=== PATIENT | female | born 1960 | race African-American/Black ===

== ENCOUNTER 2018-05-30 11:40 | Emergency (ER) | payer BC, OTHER ==
[2018-05-30 11:44] VITALS: BP 149/92; TEMP 101.8; BMI 24.4
--- NOTE | 2018-05-30 12:09 | PDOC ---
History of Present Illness - General Chief Complaint: Respiratory Stated Complaint: COLD SYMPTOMS Time Seen by Provider: 05/30/18 11:53 History Source: Patient Exam Limitations: No Limitations - History of Present Illness Initial Comments: 05/30/18 12:34 57 yo F w/ no sig PMHx comes in c/o flu like symptoms for the past 2 days, with bodyaches, generalized malaise, lightheadedness, fever up to 101, sore throat with difficulty swallowing solids, no decrease in urination, no runny nose, no cough, no abdominal pain, no NVD, no known sick contacts, no recent travel, no rash. Pt did not take her flu shot this season 05/30/18 12:41 Past History - Past Medical History Allergies/Adverse Reactions: Allergies Allergy/AdvReac Type Severity Reaction Status Date / Time Penicillins Allergy Verified 05/30/18 11:44 Home Medications: Ambulatory Orders Acetaminophen [Tylenol] 975 mg PO Q6H 3 Days #20 capsule 05/30/18 Azithromycin 250 mg PO DAILY 4 Days #4 tablet 05/30/18 Ibuprofen 600 mg PO Q8H 3 Days #20 tablet 05/30/18 COPD: No - Suicide/Smoking/Psychosocial Hx Smoking History: Never smoked Review of Systems - Review of Systems Able to Perform ROS?: Yes Constitutional: Yes: Fever, Malaise. No: Chills, Night Sweats HEENTM: Yes: Throat Pain. No: Eye Pain, Recent change in vision Respiratory: No: Cough, Shortness of Breath Cardiac (ROS): No: Chest Pain, Palpitations, Chest Tightness ABD/GI: No: Diarrhea, Nausea, Vomiting, Abdominal cramping : No: Dysuria, Hematuria Musculoskeletal: No: Back Pain Integumentary: No: Rash Neurological: No: Headache, Numbness, Dizziness Psychiatric: Yes: Change in Appetite Endocrine: No: Unexplained Weight Loss *Physical Exam - Vital Signs Last Vital Signs Temp Pulse Resp BP Pulse Ox 101.8 F H 116 H 18 149/92 100 05/30/18 11:42 05/30/18 11:42 05/30/18 11:42 05/30/18 11:42 05/30/18 11:42 - Physical Exam General Appearance: Yes: Nourished. No: Apparent Distress HEENT: positive: GIRISH, Normal ENT Inspection, Normal Voice, TMs Normal, Pharyngeal Erythema, Rhinorrhea. negative: Pale Conjunctivae, Scleral Icterus ( R), Scleral Icterus (L), Tonsillar Exudate, Tonsillar Erythema, Nasal Congestion Neck: positive: Supple, Lymphadenopathy (L). negative: Tender, Decreased range of motion, Tender midline Respiratory/Chest: positive: Lungs Clear, Normal Breath Sounds. negative: Respiratory Distress, Accessory Muscle Use Cardiovascular: positive: Regular Rhythm, Regular Rate Gastrointestinal/Abdominal: positive: Normal Bowel Sounds, Soft. negative: Tender Musculoskeletal: positive: Normal Inspection. negative: CVA Tenderness, Decreased Range of Motion Extremity: positive: Normal Capillary Refill, Normal Inspection, Normal Range of Motion. negative: Tender, Pedal Edema Integumentary: positive: Normal Color, Dry. negative: Jaundice, Rash Neurologic: positive: Fully Oriented, Alert, Normal Mood/Affect Medical Decision Making - Medical Decision Making 05/30/18 12:42 57 yo F w/ sore throat, fever, LAD, bodyaches. R/O flu Vs strep. MOtrin ordered for pain and fever 05/30/18 17:49 late entry Vitals repeated, better than triage vitals. Pt feels a lot better, she is tolerating PO, will give azithromycin (because pt is allergic to PCN) for strep She will follow up with her PMD in 2-3 days Rest and drink plenty of fluids MOtrin PRN for pain and fever Return for worsening/concerning symtpoms Pt verbalizes understanding and agrees with plan *DC/Admit/Observation/Transfer Diagnosis at time of Disposition: Strep pharyngitis - Discharge Dispostion Disposition: HOME Condition at time of disposition: Stable - Prescriptions Prescriptions: Acetaminophen [Tylenol] 975 mg PO Q6H 3 Days #20 capsule Azithromycin 250 mg PO DAILY 4 Days #4 tablet Ibuprofen 600 mg PO Q8H 3 Days #20 tablet - Referrals - Patient Instructions Printed Discharge Instructions: DI for Strep Throat Additional Instructions: Rest and drink lots of fluids. Take antibiotic as prescribed. Follow up with your PCP in 2-3 days. Return for worsening/concerning symptoms. Thank you - Post Discharge Activity Forms/Work/School Notes: Back to Work
[2018-05-30] MEDS ORDERED: IBUPROFEN 600 MG TABLET (FP) PO ONE ×2 (12:10→12:16)
[2018-05-30] MEDS ORDERED: ACETAMINOPHEN 325 MG TABLET (FP) PO ONE (13:22)
[2018-05-30] MEDS ORDERED: AZITHROMYCIN 250 MG TABLET PO ONE (13:24)
[2018-05-30] MEDS ORDERED: ACETAMINOPHEN 325 MG TABLET (FP) ONE (13:25)
[2018-05-30] MEDS ORDERED: AZITHROMYCIN 250 MG TABLET ONE ×2 (13:25)
[2018-05-30 14:11] VITALS: PULSE 95
== END 2018-05-30 14:06 | disposition home or self-care (01) ==
LOC: JERFT 11:40
DX: J02.0 Streptococcal pharyngitis (principal); B95.0 Streptococcus, group A, as the cause of diseases classified elsewhere
CPT/HCPCS: 87804; 87880; 99281-25

== ENCOUNTER 2021-12-08 20:31 | Emergency (ER) | payer OTHER ==
[2021-12-08 20:48] VITALS: BP 123/74; PULSE 89; RESP 18; TEMP 98; BMI 25.8
== END 2021-12-09 01:00 | disposition home or self-care (01) ==
LOC: JER 20:31 → JERFT 20:31
DX: S00.83XA Contusion of other part of head, initial encounter (principal); Y04.8XXA Assault by other bodily force, initial encounter
CPT/HCPCS: 70486-TC; 99284-25

== ENCOUNTER 2022-02-07 17:59 | Emergency (ER) | payer OTHER ==
[2022-02-07 18:16] VITALS: BP 121/70; PULSE 103; RESP 18; TEMP 99.1; BMI 25.0
[2022-02-07] MEDS ORDERED: IBUPROFEN 600 MG TABLET (FP) PO ONE (18:21)
== END 2022-02-07 19:14 | disposition home or self-care (01) ==
LOC: JER 17:59
DX: U07.1 COVID-19 (principal)
CPT/HCPCS: 0241U-QW; 71046-TC-FY; 99284-25

== ENCOUNTER 2023-05-17 13:46 | Emergency (ER) | payer OTHER ==
[2023-05-17 13:52] VITALS: BMI 25.8
[2023-05-17] MEDS ORDERED: ACETAMINOPHEN 325 MG TABLET (FP) ONE (16:08)
[2023-05-17] MEDS: ACETAMINOPHEN 325 MG TABLET (FP) PO ONE (16:12)
[2023-05-17 16:26] LABS: ARTERIAL BLD GAS O2 SATURATION 95.8 % (95-98); ARTERIAL BLOOD GAS BASE EXCESS 0.4 mmol/L (-2-2); ARTERIAL BLOOD GAS PO2 78.3 mmHg (80-100); ARTERIAL BLOOD GAS pH 7.418 (7.350-7.450)
[2023-05-17 16:28] LABS: ALLENS TEST POSITIVE
[2023-05-17 16:29] VITALS: BP 154/92; PULSE 77; RESP 20; TEMP 98.1
[2023-05-17] MEDS ORDERED: ALBUTEROL SO4 HFA INHALER IH ONE (18:01)
[2023-05-17] MEDS: ALBUTEROL SO4 HFA INHALER IH ONE (18:07)
== END 2023-05-17 18:29 | disposition home or self-care (01) ==
LOC: JER 13:46
PROC: 3E0F7GC Introduction of Other Therapeutic Substance into Respiratory Tract, Via Natural or Artificial Opening (ICD-10-PCS; principal; 2023-05-17)
DX: R05.9 Cough, unspecified (principal); R07.89 Other chest pain; J70.5 Respiratory conditions due to smoke inhalation
CPT/HCPCS: 36600; 71046-TC-FY; 82375; 82803; 93005; 93010; 99285-25